=== PATIENT | male | born 1960 | race Caucasian/White ===

== ENCOUNTER → 2021-03-19 09:06 | Outpatient (BNVA) | payer MEDICARE, SELFPAY | PROVIDERS: PCP Family Medicine; Referring Provider Family Medicine; Visit Provider Anesthesiology Pain Medicine | DX: M54.9 Dorsalgia, unspecified (principal); M47.816 Spondylosis without myelopathy or radiculopathy, lumbar region; M51.36 Other intervertebral disc degeneration, lumbar region; M48.062 Spinal stenosis, lumbar region with neurogenic claudication; M54.16 Radiculopathy, lumbar region; F17.210 Nicotine dependence, cigarettes, uncomplicated; Z79.891 Long term (current) use of opiate analgesic | CPT/HCPCS: 99205 ==

== ENCOUNTER → 2021-03-27 13:38 | Outpatient (BNVA) | payer MEDICARE, SELFPAY | PROVIDERS: PCP Family Medicine; Visit Provider Anesthesiology Pain Medicine | DX: M47.816 Spondylosis without myelopathy or radiculopathy, lumbar region (principal); M48.062 Spinal stenosis, lumbar region with neurogenic claudication; F17.210 Nicotine dependence, cigarettes, uncomplicated; Z79.891 Long term (current) use of opiate analgesic | CPT/HCPCS: 64493; 64494; 64495; J3490 ==

== ENCOUNTER → 2021-04-10 09:27 | Outpatient (BNVA) | payer MEDICARE, SELFPAY | PROVIDERS: PCP Family Medicine; Visit Provider Anesthesiology Pain Medicine | DX: M54.9 Dorsalgia, unspecified (principal); M48.062 Spinal stenosis, lumbar region with neurogenic claudication; M47.816 Spondylosis without myelopathy or radiculopathy, lumbar region; M51.36 Other intervertebral disc degeneration, lumbar region; M54.16 Radiculopathy, lumbar region; F17.210 Nicotine dependence, cigarettes, uncomplicated; Z79.891 Long term (current) use of opiate analgesic | CPT/HCPCS: 99214 ==

== ENCOUNTER → 2021-04-17 13:49 | Outpatient (BNVA) | payer MEDICARE, SELFPAY | PROVIDERS: PCP Family Medicine; Visit Provider Anesthesiology Pain Medicine | DX: M47.816 Spondylosis without myelopathy or radiculopathy, lumbar region (principal); M48.062 Spinal stenosis, lumbar region with neurogenic claudication; F17.210 Nicotine dependence, cigarettes, uncomplicated; Z79.891 Long term (current) use of opiate analgesic | CPT/HCPCS: 64493; 64494; 64495; J3490 ==

== ENCOUNTER → 2021-05-01 12:39 | Outpatient (BNVA) | payer MEDICARE, SELFPAY | PROVIDERS: PCP Family Medicine; Visit Provider Anesthesiology Pain Medicine | DX: M47.816 Spondylosis without myelopathy or radiculopathy, lumbar region (principal); M48.062 Spinal stenosis, lumbar region with neurogenic claudication; F17.210 Nicotine dependence, cigarettes, uncomplicated; Z79.891 Long term (current) use of opiate analgesic | CPT/HCPCS: 64635; 64636; J1030 ==

== ENCOUNTER → 2021-05-15 09:54 | Outpatient (BNVA) | payer MEDICARE, SELFPAY | PROVIDERS: PCP Family Medicine; Visit Provider Anesthesiology Pain Medicine | DX: M47.816 Spondylosis without myelopathy or radiculopathy, lumbar region (principal); M48.062 Spinal stenosis, lumbar region with neurogenic claudication; M51.36 Other intervertebral disc degeneration, lumbar region; M54.16 Radiculopathy, lumbar region; M54.9 Dorsalgia, unspecified; Z79.891 Long term (current) use of opiate analgesic | CPT/HCPCS: 99214 ==

== ENCOUNTER → 2021-05-21 13:42 | Outpatient (BNVA) | payer MEDICARE, SELFPAY | PROVIDERS: PCP Family Medicine; Visit Provider Anesthesiology Pain Medicine | DX: M47.816 Spondylosis without myelopathy or radiculopathy, lumbar region (principal); M48.062 Spinal stenosis, lumbar region with neurogenic claudication; F17.210 Nicotine dependence, cigarettes, uncomplicated; Z79.891 Long term (current) use of opiate analgesic | CPT/HCPCS: 64635; 64636; J1030 ==

== ENCOUNTER → 2021-06-05 09:52 | Outpatient (BNVA) | payer MEDICARE, SELFPAY | PROVIDERS: PCP Family Medicine; Visit Provider Anesthesiology Pain Medicine | DX: M54.16 Radiculopathy, lumbar region (principal); M51.36 Other intervertebral disc degeneration, lumbar region; M48.062 Spinal stenosis, lumbar region with neurogenic claudication; M47.816 Spondylosis without myelopathy or radiculopathy, lumbar region; M54.12 Radiculopathy, cervical region; M54.9 Dorsalgia, unspecified; F17.210 Nicotine dependence, cigarettes, uncomplicated; Z79.891 Long term (current) use of opiate analgesic | CPT/HCPCS: 99214 ==

== ENCOUNTER 2021-06-20 12:53 | Outpatient (CLI) | payer MEDICARE, SELFPAY ==
--- NOTE | 2021-06-20 13:30 | CT_ITS ---
WS: [id number] CT cervical spine. Additional two-dimensional coronal and sagittal reconstruction was performed. 06/20. Clinical Data: M54.12 - Radiculopathy, cervical region Comparison: None. DLP: 1980.[address] scans at [facility] use at least one of these dose optimization techniques: automat ed exposure control; mA and/or kV adjustment per patient size (includes targeted exams where dose is matched to clinical indication); or iterative reconstruction. Findings: No compression fractures are seen. There is disc space narrowing at C5-C6 and C6-C7. There are osteop hytes at C2, C4, C5, C6 and C7. There is facet joint arthritis at the right C3-C4 level. The spinous processes are in good alignment. The odontoid is unremarkable. There is no prevertebral soft tissue s welling. The soft tissues of the cervical spine and the lung apices are not remarkable. C2-C3: No disc bulge, canal stenosis or foraminal stenosis is seen. C3-C4: There is minimal posterior osteophyte formation with right facet joint arthritis causing canal and right foraminal stenosis. C4-C5: There is posterior osteophyte disc complex causing mild canal stenosis. C5-C6: There is posterior osteophyte disc complex causing canal and foraminal stenosis. C6-C7: There is posterior osteophyte disc complex causing canal and foraminal stenosis. C7-T1: There is posterior osteophyte disc complex causing canal and foraminal stenosis. CT/CT cervical spin wo con* [id number] Impression: 1. Multilevel posterior osteophyte disc complex causing canal and foraminal jamil nosis. 2. Severe facet joint arthritis on the right at C3-C4. 3. Multilevel disc narrowing and osteoarthritis of the vertebral bodies.
== END 2021-06-20 12:54 | disposition home or self-care (01) ==
PROVIDERS: PCP Family Medicine; Visit Provider Anesthesiology Pain Medicine
DX: M54.12 Radiculopathy, cervical region (principal); M25.78 Osteophyte, vertebrae; M47.812 Spondylosis without myelopathy or radiculopathy, cervical region
CPT/HCPCS: 72125

== ENCOUNTER → 2021-07-10 09:49 | Outpatient (BNVA) | payer MEDICARE, SELFPAY | PROVIDERS: PCP Family Medicine; Visit Provider Anesthesiology Pain Medicine | DX: G89.29 Other chronic pain (principal); M54.16 Radiculopathy, lumbar region; M51.36 Other intervertebral disc degeneration, lumbar region; M48.062 Spinal stenosis, lumbar region with neurogenic claudication; M47.816 Spondylosis without myelopathy or radiculopathy, lumbar region; M54.12 Radiculopathy, cervical region; M50.90 Cervical disc disorder, unspecified, unspecified cervical region; M79.604 Pain in right leg; M79.605 Pain in left leg; F17.210 Nicotine dependence, cigarettes, uncomplicated; Z79.891 Long term (current) use of opiate analgesic | CPT/HCPCS: 99214 ==

== ENCOUNTER → 2022-03-04 11:53 | Outpatient (BNVA) | payer MEDICARE, SELFPAY | PROVIDERS: PCP Family Medicine; Visit Provider Surgery | DX: Z20.822 Contact with and (suspected) exposure to COVID-19 (principal) | CPT/HCPCS: 87635 ==

== ENCOUNTER 2022-03-08 07:48 | Day surgery (SDC) | payer MEDICARE, SELFPAY ==
[2022-03-05 14:54] VITALS: BMI 51.1
--- NOTE | 2022-03-08 07:59 | P.ANESASSM_ITS ---
Pre-Anesthetic Assessment Height/Weight: Height 1.83 m Weight 171.004 kg Operation Date: 03/08/22 09:30 Proposed Procedures p EGD 24066/90268/k92.1/r10.13(Not Applicable) - Óscar Vaughn MD s Colonoscopy(Not Applicable) - Óscar Vaughn MD Familial anesthetic complications: none Last intake: > 8 hrs Social Tobacco and No alcohol Exam alert, oriented x 3, clear to auscultation bilaterally and regular rate & rhythm Airway Mallampati: Class III Dentition: chipped and other (missing, poor dentition) Comments: Comments: full [email or web address] Pulmonary Exertional Dyspnea CV/HEM Hypertension None reported Hepatic None reported GI Gastroesophageal Reflux Disease Metabolic Morbid Obesity Neuropsych None reported Anesthetic Plan ASA status: 3 Anesthesia: MAC Risk of > 500 ml blood loss (7ml/kg in children): No Medications/Allergies Home Medications Medication Instructions Recorded Confirmed Last Taken Type fluticasone propionate 50 1 spray INTRANASAL BID 03/19/21 03/05/22 Unknown History mcg/actuation nasal spray,suspension folic acid 1 mg tablet 1 mg PO DAILY 03/19/21 03/05/22 Unknown History furosemide 40 mg tablet 40 mg PO DAILY 03/19/21 03/05/22 Unknown History lisinopril 10 mg tablet 10 mg PO DAILY 03/19/21 03/05/22 Unknown History lovastatin 20 mg tablet 20 mg PO DAILY 03/19/21 03/05/22 Unknown History magnesium 250 mg tablet 250 mg PO DAILY 03/19/21 03/05/22 Unknown History omeprazole 20 mg capsule,delayed 20 mg PO DAILY 03/19/21 03/05/22 Unknown History release ropinirole 2 mg tablet 2 mg PO TID 03/19/21 03/05/22 Unknown History sennosides 8.6 mg-docusate sodium See Rx Instructions PO DAILY 03/19/21 03/05/22 Unknown History 50 mg tablet (Senexon-S) duloxetine 20 mg capsule,delayed 20 mg PO BID 01/14/22 03/05/22 Unknown History release Allergies Allergy/AdvReac Type Severity Reaction Status Date / Time No Known Allergies Allergy Verified 01/16/22 16:48 [facility] Anesthesia Family History Mother , Cardiac arrest Lung disease partial lobectomy Father , Never recovered from hip surgery No problems noted. Social History Smoking and tobacco status: current every day smoker cigarettes Alcohol intake: current Alcohol intake frequency: few times a week Alcohol type: beer History of recent travel: No Data Anesthesia Cardiac Studies: No Data to Display
[2022-03-08 08:31] VITALS: BP 169/101; RESP 20; TEMP 36.5; O2SAT 92
[2022-03-08] MEDS: sodium chloride 0.9% 1,000 ML 30 ML IV (08:44)
--- NOTE | 2022-03-08 09:02 | W.PM.OPSFHP ---
Same Day Surgery H&P Indication for Procedure/HPI DATE OF PROCEDURE: March 08, 2022 CHIEF COMPLAINT/INDICATIONFOR SURGICAL PROCEDURE: Blood in stool PREOP DIAGNOSIS: Epigastric pain/blood in stool PLANNED PROCEDURE: Operation Date: 03/08/22 09:30 Proposed Procedures p EGD 18073/85794/k92.1/r10.13(Not Applicable) - MD yaneth Marvin Colonoscopy(Not Applicable) - Óscar Vaughn MD 01/14/2022 This is a pleasant 61 years old gentleman referred to my practice with history of dull epigastric pain associated with nausea for the past 4 months or so patient reports that nothing seems to make it better or worse and he has been on PPI therapy for more than 6 months.? Patient was also found to have occult blood positive in stool and he never had a colonoscopy before.? Or EGD.? Denies history of colon cancer. 03/08/2022 Patient comes today for EGD and colonoscopy. ROS All systems have been reviewed negative except as per the above or per problem list Medications/Allergies* Home Medications Medication Instructions Recorded Confirmed Type fluticasone propionate 50 1 spray INTRANASAL BID 03/19/21 03/08/22 History mcg/actuation nasal spray,suspension folic acid 1 mg tablet 1 mg PO DAILY 03/19/21 03/08/22 History furosemide 40 mg tablet 40 mg PO DAILY 03/19/21 03/08/22 History lisinopril 10 mg tablet 10 mg PO DAILY 03/19/21 03/08/22 History lovastatin 20 mg tablet 20 mg PO DAILY 03/19/21 03/08/22 History magnesium 250 mg tablet 250 mg PO DAILY 03/19/21 03/08/22 History omeprazole 20 mg capsule,delayed 20 mg PO DAILY 03/19/21 03/08/22 History release ropinirole 2 mg tablet 2 mg PO TID 03/19/21 03/08/22 History sennosides 8.6 mg-docusate sodium See Rx Instructions PO DAILY 03/19/21 03/08/22 History 50 mg tablet (Senexon-S) duloxetine 20 mg capsule,delayed 20 mg PO BID 01/14/22 03/08/22 History release Allergies/Adverse Reactions Allergy/AdvReac Type Severity Reaction Status Date / Time No Known Allergies Allergy Verified 03/08/22 09:03 Current Medications: Generic Name Dose Route Start Last Admin Trade Name Freq PRN Reason Stop Dose Admin Sodium Chloride 1,000 mls @ 30 mls/hr 03/08/22 08:30 03/08/22 08:44 Sodium Chloride 0.9% IV 03/09/22 08:29 30 mls/hr .Q24H MARION Administration Pertinent History/Comorbid Conditions* Family History (Updated 03/19/21 @ 09:43 by Laura Peralta LPN) Father, Never recovered from hip surgery Mother, Cardiac arrest Lung disease Mother partial lobectomy Social History Smoking and tobacco status: current every day smoker cigarettes Alcohol intake: current Alcohol intake frequency: few times a week Alcohol type: beer History of recent travel: No Pertinent Exam Findings alert, oriented x 3, regular rate & rhythm and procedure specific exam findings (Abdominal examination nontender nondistended soft) Recommendations Surgery/Procedure today (Diagnostic EGD and colonoscopy) Coding Level of Care Code Acute Technical Services Representative for Michelle Bustamante
--- NOTE | 2022-03-08 11:01 | SUR.OPER ---
Addendum entered by Chitra Jensen RN 03/08/22 11:04: 3ML of ink placed at 60cm Original Note: ink placed at 60cm
[2022-03-08 11:26] VITALS: BP 121/89; PULSE 103; RESP 16; TEMP 36.9; O2SAT 95
[2022-03-08 11:41] VITALS: BP 151/93; PULSE 102; RESP 18; O2SAT 95
[2022-03-08 11:51] VITALS: BP 166/82; PULSE 96; RESP 18; O2SAT 93
[2022-03-08 12:17] VITALS: O2SAT 93
[2022-03-14 08:43] LABS: Miscellaneous Test See Scanned Lab Rpt
== END 2022-03-08 12:22 | disposition home or self-care (01) ==
PROVIDERS: PCP Family Medicine; Visit Provider Surgery
PROC: 0DJ08ZZ Inspection of Upper Intestinal Tract, Via Natural or Artificial Opening Endoscopic (ICD-10-PCS; CPT 43235; principal; 2022-03-08 09:30)
PROC: 0DJD8ZZ Inspection of Lower Intestinal Tract, Via Natural or Artificial Opening Endoscopic (ICD-10-PCS; CPT 45378; 2022-03-08 09:30)
DX: R10.13 Epigastric pain (principal); K92.1 Melena; F17.210 Nicotine dependence, cigarettes, uncomplicated; D12.2 Benign neoplasm of ascending colon; K57.30 Diverticulosis of large intestine without perforation or abscess without bleeding; K21.00 Gastro-esophageal reflux disease with esophagitis, without bleeding; K29.70 Gastritis, unspecified, without bleeding; K29.80 Duodenitis without bleeding; K21.9 Gastro-esophageal reflux disease without esophagitis; E66.01 Morbid (severe) obesity due to excess calories; Z68.43 Body mass index [BMI] 50.0-59.9, adult
CPT/HCPCS: 43239; 45380; 45381; 45385; 88305; J2704; J7030

== ENCOUNTER → 2022-03-20 09:24 | Outpatient (BNVA) | payer MEDICARE, SELFPAY | PROVIDERS: PCP Family Medicine; Visit Provider Surgery | DX: Z09 Encounter for follow-up examination after completed treatment for conditions other than malignant neoplasm (principal); K63.5 Polyp of colon; C18.7 Malignant neoplasm of sigmoid colon; K21.9 Gastro-esophageal reflux disease without esophagitis; M79.89 Other specified soft tissue disorders; K57.31 Diverticulosis of large intestine without perforation or abscess with bleeding | CPT/HCPCS: 36415; 80053; 82378; 85025; 99213 ==

== ENCOUNTER 2022-03-26 11:18 | Outpatient (CLI) | payer MEDICARE, SELFPAY ==
[2022-03-26 12:49] LABS: Basophils # 0.1 10^3/uL (0.0-0.1); Eosinophils # 0.2 10^3/uL (0.0-0.8); Eosinophils % 2.1 %; Hematocrit 52.6 % (42.0-52.0); Hemoglobin 16.4 g/dL (11.7-16.6); Lymphocytes % 19.9 %; Mean Corpuscular HGB Conc 31.2 g/dL (30.0-36.0); Mean Corpuscular Hemoglobin 27.7 pg (28.0-34.0); Mean Platelet Volume 8.8 fL (7.4-10.4); Monocytes # 0.9 10^3/uL (0.2-0.9); Monocytes % 9.3 %; Neutrophils # 6.62 10^3/uL (1.8-7.7); Neutrophils % 67.5 %; Nucleated Red Blood Cells % 0 %; Platelet Count 266 10^3/cmm (130-400); Red Blood Count 5.91 10^6/uL (4.1-5.3); Red Cell Distribution Width 13.1 % (12.1-15.1); White Blood Count 9.8 10^3/uL (4.0-10.0)
[2022-03-26 13:15] LABS: Alanine Aminotransferase 24 U/L (0-41); Albumin Level 4.1 g/dL (3.5-5.2); Alkaline Phosphatase 75 IU/L (40-130); Anion Gap 13.5 (5-19); Aspartate Amino Transferase 21 U/L (0-40); Blood Urea Nitrogen 9 mg/dL (8-23); Carbon Dioxide 33 mmol/L (22-29); Chloride 92 mmol/L (98-107); Globulin 3.4 g/dL (1.3-4.6); Glomerular Filtration Rate 113.9 mL/min (90-130); Glucose 85 mg/dL (65-115); Osmolality Calculated 276 mOsm/kg (285-295); Potassium 4.5 mmol/L (3.5-5.1); Sodium 134 mmol/L (136-145); Total Bilirubin 0.3 mg/dL (0.15-1.2); Total Protein 7.5 g/dL (6.6-8.7)
--- NOTE | 2022-03-27 10:01 | ONC CON_ITS ---
Dr. Mccann New Patient Note Patient: Carlo Etienne Unit #: [id number]: 1960 Dicatated By: Glendy Mccann M.D.Date of Visit: Mar 26, 2022 Onc MED New Patient/Consult Referring Physician: Dr. CARMELITA URRUTIA M.D. History of Present Illness: Carlo Etienne, is a 61-year-old gentleman with a history of dull epigastric pain/nausea of 4 months or so duration and occult positive stool, was evaluated by Dr. 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 Colonoscopy also showed in the distal sigmoid colon, nonobstructive, large size, fungating, infiltrative malignant appearing poor by 3 cm mass was seen mass was not bleeding, multiple [place] diverticula were present and not actively bleeding In the mid ascending colon, multiple semipedunculated polyps, ranging from 2 mm to 4 mm seen polyps were completely excised by cold forceps and final pathology report showed fragments of tubular adenoma, no high-grade dysplasia identified. Patient also underwent EGD showed mild gastritis/reflux esophagitis GERD, duodenitis biopsies were obtained shows no H. pylori no dysplasia. Patient smoke daily, occasional cough intake. Denies any fever chills denies any nausea vomiting denies any diarrhea or constipation denies any melena or hematochezia denies any hemoptysis hematemesis denies any jaundice denies any abdominal pain denies any dysuria or hematuria but generalized weakness and fatigue and sleepy during daytime and bilateral lower extremity edema Past Medical History: There is no documented medical history. Past Surgical History: There is no documented surgical history. Medications: Clear Eyes Natural Tears Solution Ophthalmic PRN, DULoxetine HCl 1 Capsule (of 20 mg) Capsule Delayed Release Particles Oral daily, Fluticasone Propionate 1 [place](s) (of 50 mcg/act) Suspension Nasal daily, Folic Acid 1 Tablet (of 1 mg) Oral daily, Furosemide 1 Tablet (of 40 mg) Oral daily, Lisinopril 1 Tablet (of 10 mg) Oral daily, Lovastatin 1 Tablet (of 20 mg) Oral daily, Omeprazole 1 Tablet (of 20 mg) Tablet, enteric coated Oral daily, rOPINIRole HCl 1 Tablet (of 2 mg) Oral t.i.d., Sentry Senior 1 Tablet Oral daily, Stool Softener 2 Capsule Oral b.i.d. Allergies: No Known Allergies. Social History: Mr. Etienne is . He is a daily smoker who smokes 2.0 packs/day. He drinks occasionally. He has indicated exposure to the following products: cigarettes. Family History: Mr. Etienne's mother is : cardiac arrest, and lung disease. Mr. Etienne's father is . Review Of Symptoms: Review of Systems is not available for this patient. Vital Signs: Performed on Mar 26, 2022 16:20: 5, 9, 49.24 (HIGH), 2.81 sq.m, 73 in, 93 % (LOW), 102 /min (HIGH), 18 /min, 144/85 mm(hg) (HIGH), 97.8 F (LOW), and 373.2 lbs (HIGH). Performance Status: 1 - No physically strenuous activity, but ambulatory and able to carry out light or sedentary work (e.g. office work, light house work). (ECOG) Physical Examination: ENMT - No mouth sores, no thrush, no jaundice, no cervical lymphadenopathy, Respiratory - Poor air entry otherwise clear, Cardiovascular - Distant heart sounds otherwise Regular rate and rhythm of heart, Abdomen - Soft, bowel sounds present, Extremities - 2+ bilateral edema. Lab/Imaging: Most recent lab results are not available for this patient. 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 As per discussion with pathology, intramucosal carcinoma is is another term use for in situ neoplasia, in his case, if endoscopic ultrasound shows no extensive Local involvement or lymphadenopathy, transanal resection can be considered or laparoscopic resection, we will leave up to surgeon's discretion. We will see him back, 2 weeks after surgical intervention. As far as polycythemia is concerned, probably reactive to underlying sleep apnea and chronic smoking, patient was advised to quit smoking and we will also suggest PMD to consider sleep study as if sleep apnea is confirmed, may benefit from CPAP machine. Signed By: Glendy Mccann M.D. <<Signature on File>>
== END 2022-03-26 11:19 | disposition home or self-care (01) ==
LOC: ONCMED 11:22
PROVIDERS: PCP Family Medicine; Visit Provider Internal Medicine Hematology & Oncology
DX: C18.7 Malignant neoplasm of sigmoid colon (principal); E66.01 Morbid (severe) obesity due to excess calories; D75.1 Secondary polycythemia; R60.0 Localized edema; I10 Essential (primary) hypertension; F17.210 Nicotine dependence, cigarettes, uncomplicated
CPT/HCPCS: 36415; 80053; 85025; 99205

== ENCOUNTER 2022-04-11 12:37 | Outpatient (CLI) | payer MEDICARE, SELFPAY ==
--- NOTE | 2022-04-11 14:30 | CT_ITS ---
WS: [id number] CT ABDOMEN PELVIS TECHNIQUE: Contrast-enhanced CT of the abdomen and pelvis with coronal and sagittal reformatted image s. CLINICAL INFORMATION: C18.7 - Malignant neoplasm of sigmoid colon COMPARISON: None. DLP: 1353.[address] scans at [facility] use at least one of these dose optimization techniques: automated e xposure control; mA and/or kV adjustment per patient size (includes targeted exams where dose is matc hed to clinical indication); or iterative reconstruction. FINDINGS: Mild diffuse fatty infiltration of the liver. Normal portal vein and splenic vein. Normal gallbladder . Fatty atrophy of the pancreas. Normal spleen. Normal GE junction. Slight bibasilar atelectasis. Adr enal glands are normal. Normal renal parenchymal enhancement. No hydronephrosis. Tiny LEFT renal cyst . Celiac and SMA are patent. Normal caliber abdominal aorta. Fat-containing umbilical hernia with hernia mouth opening measuring 2.4 CM. Sigmoid diverticulosis. N o evidence of acute diverticulitis. No evidence of high-grade obstruction or intraluminal mass visual ized. History of recent sigmoid colon carcinoma diagnosis. No upper abdominal or periaortic lymphadenopathy. No retroperitoneal lymphadenopathy. No pelvic or in guinal lymphadenopathy. Inguinal lymph nodes with normal fatty justo. Mild diffuse bladder wall thickening. Prostate calcification. Prostate measures 3.1 x 3.8 cm. Mild jonathan mbar curve. CT/CT abdomen pelvis w con* [id number] IMPRESSION: 1. No evidence of metastatic disease in the abdomen or pelvis. 2. Sigmoid diverticulosis. No evidence of acute diverticulitis. 3. Mild wall thickening of the proximal and mid sigmoid colon may represent ar ea of recent biopsy. No intraluminal obstructing mass visualized. 4. No abdominal or pelvic lymphadenopathy. 5. Fat-containing umbilical hernia. 6. Mild diffuse fatty infiltration of the liver. 7. Mild diffuse bladder wall thickening can be seen with bladder outlet obstru ction or chronic cystitis. Slightly prominent prostate measuring 3.8 x 3.0 CM. Recommend correlation PSA.
[2022-04-11] MEDS: iohexol 350 mg/mL 100 mL Btl IV (14:49)
== END 2022-04-11 12:38 | disposition home or self-care (01) ==
PROVIDERS: PCP Family Medicine; Visit Provider Surgery
DX: C18.7 Malignant neoplasm of sigmoid colon (principal); K57.30 Diverticulosis of large intestine without perforation or abscess without bleeding; K42.9 Umbilical hernia without obstruction or gangrene; K76.0 Fatty (change of) liver, not elsewhere classified
CPT/HCPCS: 74177

== ENCOUNTER 2022-04-15 13:47 | Outpatient (CLI) | payer MEDICARE, SELFPAY ==
--- NOTE | 2022-04-15 14:15 | USCV_ITS ---
Carlo Etienne Age: 61 Gender: M : 1960 Exam Date: 04/15/2022 14:52 Ordering Phys: Óscar Vaughn MD Technologist: Bandar Law [place]am [place] [facility] [place]: sob BP: 142 / 86 HR: 91 Rhythm: Sinus Technical Quality: Adequate MEASUREMENTS (Male / Female) Normal Values 2D ECHO LV Diastolic Diameter PLAX 5.6 cm 4.2 - 5.9 / 3.9 - 5.3 cm LV Systolic Diameter PLAX 3.4 cm IVS Diastolic Thickness 0.8 cm 0.6 - 1.0 / 0.6 - 0.9 cm IVS Systolic Thickness 1.6 cm LVPW Diastolic Thickness 1.1 cm 0.6 - 1.0 / 0.6 - 0.9 cm LVPW Systolic Thickness 1.1 cm LVOT Diameter 2.0 cm LV Ejection Fraction 2D Teich 69.6 % LV Ejection Fraction MOD 2C 65.4 % LV Ejection Fraction 2C AL 66.0 % LA Diameter 3.8 cm LA Width 3.6 cm LA Height 3.8 cm RA Width 2.8 cm RA Height 4.1 cm Aorta at Sinotubular Diameter 2.9 cm IVC Diameter 2.7 cm M-MODE Aortic Annulus Diameter 2.9 cm LA Ao Ratio MM 1.3 MV E Point Septal Separation 0.7 cm DOPPLER AV Peak Velocity 167.0 cm/s LVOT Peak Velocity 150.0 cm/s AV Area Cont Eq vti 2.9 cm squared AV Area Cont Eq pk 2.8 cm squared MV Peak Velocity 114.0 cm/s MV Area PHT 3.6 cm squared Mitral E to A Ratio 1.2 MV E' Velocity 59.0 cm/s Mitral E to MV E' Ratio 5.1 Mitral E to LV E' Lateral Ratio 4.2 Mitral E to LV E' Septal Ratio 6.6 Right Atrial Pressure 8.0 mmHg RV Acceleration Time 0.1 s RV Ejection Time 0.3 s RV AcT/ET 0.2 FINDINGS Left Ventricle Normal left ventricular size. LV systolic function is normal with EF of 55-60%. No regional wall motion abnormalities. Diastolic function is normal Right Ventricle The right ventricle is normal in size and function. Right Atrium The right atrium is normal in size. Left Atrium The left atrium is normal in size. Mitral Valve Structurally normal mitral valve without significant stenosis or prolapse. There is trace mitral regurgitation. Aortic Valve Structurally normal aortic valve without significant sclerosis or stenosis. There is no aortic regurgitation. Tricuspid Valve Grossly normal. Trace tricuspid regurgitation. Insufficient TR jet to calculate RVSP Pulmonic Valve Not well visualized. Pericardium Normal pericardium without effusion. Aorta Normal ascending aorta dimension. IVC The inferior vena cava appears normal CONCLUSIONS LV systolic function is normal with EF of 55-60% Diastolic function is normal Trace mitral regurgitation Trace tricuspid regurgitation No comparison studies are available Rolando Blevins MD (Electronically Signed) Final Date: 20 Apr 2022 12:56 S
--- NOTE | 2022-04-15 14:43 | USCV_ITS ---
Carlo Etienne Age: 61 Gender: M : 1960 Exam Date: 04/15/2022 15:29 Ordering Phys: Óscar Vaughn MD Technologist: Bandar Law Exam Location: [facility] – [place] Indication: Leg swelling PROCEDURES: Venous duplex imaging was performed in bilateral lower extremities. The following venous structures were evaluated: common femoral vein, profunda vein, proximal portion of the greater saphenous vein, superficial femoral vein, and the popliteal vein. In addition, the posterior tibial and peroneal trunk were evaluated. Serial compression, augmentation maneuvers, and spectral Doppler flow evaluation were performed. FINDINGS: Normal 2-D Doppler and augmentation and compressibility throughout the lower extremity venous structures. Additional imaging through the proximal calf veins also reveals no thrombus. Limited evaluation of the greater saphenous vein is patent with no thrombus.. CONCLUSIONS No evidence of right lower extremity DVT. No evidence of left lower extremity DVT. Vijay Morel MD (Electronically Signed) Final Date: 15 Apr 2022 16:29 S
== END 2022-04-15 13:48 | disposition home or self-care (01) ==
LOC: RAD 13:47
PROVIDERS: PCP Family Medicine; Visit Provider Surgery
DX: R06.02 Shortness of breath (principal); M79.89 Other specified soft tissue disorders
CPT/HCPCS: 93306; 93970

== ENCOUNTER → 2022-06-24 11:17 | Outpatient (BNVA) | payer MEDICARE, SELFPAY | PROVIDERS: PCP Family Medicine; Visit Provider Student in an Organized Health Care Education/Training Program | DX: Z01.812 Encounter for preprocedural laboratory examination (principal); Z20.822 Contact with and (suspected) exposure to COVID-19 | CPT/HCPCS: 87635 ==

== ENCOUNTER 2022-12-19 14:11 | Outpatient (CLI) | payer MEDICARE, SELFPAY ==
--- NOTE | 2022-12-19 14:21 | MR_ITS ---
WS: [id number] MRI CERVICAL SPINE NONCONTRAST TECHNIQUE: Sagittal T1, T2 and STIR imaging. Axial T2, gradient, and fiesta imaging. CLINICAL INFORMATION: CLOSED SUBLAXATION OF CERVICAL SPINE COMPARISON: None. FINDINGS: Edema in the RIGHT C2-C3 cervical facets with periarticular edema and small facet effusion. Findings compatible with synovitis likely infectious/inflammatory or degenerative. Recommend correla tion with axial loading RIGHT upper cervical neck pain. Straightening with slight reversal normal cervical lordosis. Disc bulging worse at C4-C5 and C5-C6. C ord signal is normal. C2-C3: RIGHT facet synovitis described above. Spinal canal is patent. Mild facet arthropathy. Mild LE FT greater than RIGHT foraminal narrowing. C3-C4: Mild disc osteophyte complex with endplate ridging. Advanced RIGHT facet arthropathy. Moderate bilateral bony foraminal narrowing RIGHT greater than LEFT. C4-C5: Shallow central disc protrusion. Slight contact of the cervical cord. Moderate central canal s tenosis. Moderate facet arthropathy. Moderate LEFT and mild RIGHT bony foraminal narrowing. C5-C6: Disc osteophyte complex with endplate ridging. LEFT pericentral disc osteophyte protrusion wit h mild central canal stenosis. Slight indentation LEFT ventral cervical cord. Severe LEFT and mild RI GHT bony foraminal narrowing. Mild facet arthropathy. C6-C7: RIGHT eccentric disc osteophyte complex with severe RIGHT bony foraminal narrowing. Mild centr al canal stenosis. Mild to moderate LEFT foraminal narrowing. C7-T1: Disc osteophytic ridging. Mild bilateral bony foraminal narrowing. Mild facet arthropathy. Visualized brain stem structures: Normal. Prevertebral soft tissues: Normal. MR/MR cervical spin wo con* [id number] IMPRESSION: 1. Edema in the RIGHT C2-C3 cervical facets with periarticular edema and small facet effusion. Findings compatible with synovitis likely infectious/inflammat ory or degenerative. Recommend correlation with RIGHT upper cervical neck pain. 2. Moderate central canal stenosis C4-C5. Mild central canal stenosis C5-C6 an d C6-C7 3. Moderate to severe bony foraminal narrowing worse at RIGHT C3-C4, LEFT C5-C 6, and RIGHT C6-C7. 4. Advanced facet arthropathy worse at RIGHT C3-C4.
== END 2022-12-19 14:12 | disposition home or self-care (01) ==
PROVIDERS: PCP Family Medicine; Visit Provider Family Medicine
DX: S13.100A Subluxation of unspecified cervical vertebrae, initial encounter (principal); X58.XXXA Exposure to other specified factors, initial encounter; M48.02 Spinal stenosis, cervical region
CPT/HCPCS: 72141

== ENCOUNTER → 2023-03-11 10:50 | Outpatient (BNVA) | payer MEDICARE, SELFPAY | PROVIDERS: PCP Family Medicine; Referring Provider Nurse Practitioner Family; Visit Provider Anesthesiology Pain Medicine | DX: M54.16 Radiculopathy, lumbar region (principal); M51.36 Other intervertebral disc degeneration, lumbar region; M48.062 Spinal stenosis, lumbar region with neurogenic claudication; M47.816 Spondylosis without myelopathy or radiculopathy, lumbar region; M54.12 Radiculopathy, cervical region; M50.90 Cervical disc disorder, unspecified, unspecified cervical region | CPT/HCPCS: 99204 ==

== ENCOUNTER → 2023-04-01 12:50 | Outpatient (BNVA) | payer MEDICARE, SELFPAY | PROVIDERS: PCP Family Medicine; Visit Provider Anesthesiology Pain Medicine | DX: M79.18 Myalgia, other site (principal); M54.16 Radiculopathy, lumbar region; M51.36 Other intervertebral disc degeneration, lumbar region; M48.062 Spinal stenosis, lumbar region with neurogenic claudication; M47.816 Spondylosis without myelopathy or radiculopathy, lumbar region; M54.12 Radiculopathy, cervical region; M50.90 Cervical disc disorder, unspecified, unspecified cervical region | CPT/HCPCS: 20553; 99213; J1030; J3490 ==

== ENCOUNTER → 2023-04-17 13:07 | Outpatient (BNVA) | payer MEDICARE, SELFPAY | PROVIDERS: PCP Family Medicine; Referring Provider Family Medicine; Visit Provider Orthopaedic Surgery | DX: M47.22 Other spondylosis with radiculopathy, cervical region (principal); J44.9 Chronic obstructive pulmonary disease, unspecified; F17.210 Nicotine dependence, cigarettes, uncomplicated; I50.9 Heart failure, unspecified; Z68.43 Body mass index [BMI] 50.0-59.9, adult | CPT/HCPCS: 72050; 99204 ==